=== PATIENT | female | born 1975 | race Caucasian/White ===

== ENCOUNTER 2021-10-11 06:27 | Day surgery (SDC) | payer OTHER, SELFPAY ==
[~2021-10-11] VITALS: Ht 165.1 cm; Wt 88.0 kg
[2021-10-11] MEDS ORDERED: SIMETHICONE 40 MG/0.6 ML ML ONE (06:30)
[2021-10-11] MEDS ORDERED: MEPERIDINE 100 MG INJ. 100 MG/ML VIAL ONE (06:31)
[2021-10-11] MEDS ORDERED: MIDAZOLAM HCL 5 MG/5 ML VIAL ONE (06:31)
[2021-10-11 07:32] LABS: HCG,QUAL RESULT NEGATIVE (NEGATIVE)
[2021-10-11 12:17] VITALS: BP_SYST 94
== END 2021-10-11 09:45 | disposition home or self-care (01) ==
LOC: SDS 06:27 → SMU 06:28 → SDS 09:45
PROVIDERS: ATTEND Internal Medicine Gastroenterology
DX: R10.9 Unspecified abdominal pain (principal); K76.0 Fatty (change of) liver, not elsewhere classified; K29.50 Unspecified chronic gastritis without bleeding; D12.2 Benign neoplasm of ascending colon; K64.4 Residual hemorrhoidal skin tags; Z79.899 Other long term (current) drug therapy; Z20.822 Contact with and (suspected) exposure to COVID-19
CPT/HCPCS: 43239; 45380; 45385; 84703; 88305; 88312; 88313; 99152; 99153; G0378; J2175; J2250; U0003